=== PATIENT | female | born 1990 | race Caucasian/White ===

== ENCOUNTER 2018-05-28 05:49 | Inpatient (IN) | payer OTHER ==
[~2018-05-28] VITALS: Ht 165.1 cm; Wt 84.0 kg
[2018-05-28] MEDS ORDERED: METOCLOPRAMIDE HCL 5 MG/ML 2 ML VIAL IVP ONE (06:00)
[2018-05-28] MEDS ORDERED: CITRIC ACID/SODIUM CITRATE 30 ML SOLUTION UDCUP PO ONE (06:00)
[2018-05-28] MEDS ORDERED: PREN1TAB80 PO (06:01)
[2018-05-28] MEDS ORDERED: METHY250 PO (06:01)
[2018-05-28 06:32] LABS: BASOPHILS % (AUTO) 0.3 % (0.0-2.0); HEMATOCRIT 37.7 % (36-46); HEMOGLOBIN 12.9 g/dL (12.0-16.0); LYMPHOCYTES # (AUTO) 1.5 K/uL (1.0-4.8); LYMPHOCYTES % (AUTO) 18.3 % (22.0-44.0); MEAN CORPUSCULAR HGB CONC 34.3 G/dL (31.0-37.0); MEAN CORPUSCULAR VOLUME 90 fL (80-100); MONOCYTES # (AUTO) 0.6 K/uL (0.1-1.0); MONOCYTES % (AUTO) 7.6 % (2.0-9.0); NEUTROPHILS # (AUTO) 5.9 K/uL (1.8-7.7); NEUTROPHILS % (AUTO) 72.8 % (40.0-70.0); PLATELET COUNT (AUTO)-OB 231 K/uL (150-450); RED BLOOD CELL COUNT(AUTO) 4.18 MIL/uL (4.00-5.20); RED CELL DISTRIBUTION WIDTH 14.3 % (11.5-14.5)
[2018-05-28] MEDS: RINGERS SOLUTION,LACTATED 1,000 ML IV SCH ×2 (06:43→07:19)
[2018-05-28 06:44] VITALS: BP 127/81
[2018-05-28] MEDS ORDERED: BUPIVACAINE HCL/DEX-WATER/PF 0.75% 2 ML AMP ONE (07:29)
[2018-05-28] MEDS ORDERED: ACETAMINOPHEN 1000 MG/ISO-OSM 100 ML IV ONE ×2 (08:25→14:30)
[2018-05-28] MEDS ORDERED: OxyCODONE HCL/ACETAMINOPHEN 10-325 MG TABLET PO PRN (08:45)
[2018-05-28] MEDS ORDERED: MEPERIDINE-PF 25 MG/ML VIAL IVP PRN (08:45)
[2018-05-28] MEDS ORDERED: FentaNYL CITRATE-PF 100 MCG/2 ML VIAL IVP PRN ×2 (08:45)
[2018-05-28] MEDS ORDERED: NALOXONE HCL 0.4 MG/ML VIAL IVP PRN (08:45)
[2018-05-28] MEDS ORDERED: HYDROmorphone 2 MG/ML SYRINGE IVP PRN ×2 (08:45)
[2018-05-28] MEDS ORDERED: DiphenhydrAMINE HCL 50 MG/ML VIAL IVP PRN (08:45)
[2018-05-28] MEDS ORDERED: RINGERS SOLUTION,LACTATED 1,000 ML IV ONE (08:46)
[2018-05-28] MEDS ORDERED: LANOLIN 7 GM OINTMENT TP PRN (09:00)
[2018-05-28] MEDS ORDERED: ACETAMINOPHEN/CODEINE 300-30 MG TABLET PO PRN (09:00)
[2018-05-28] MEDS ORDERED: ONDANSETRON HCL 4 MG/2 ML VIAL ONE (09:39)
[2018-05-28] MEDS: ONDANSETRON HCL 4 MG/2 ML VIAL IVP PRN ×2 (09:42→17:07)
[2018-05-28] MEDS ORDERED: ONDANSETRON HCL 4 MG/2 ML VIAL IVP ONE ×2 (13:00→14:00)
[2018-05-28] MEDS: DEXTROSE 5%-0.45% SODIUM CHL 1,000 ML IV SCH ×2 (14:46→21:12)
[2018-05-28 17:59] VITALS: BP 126/65
[2018-05-28] MEDS: ACETAMINOPHEN 500 MG TABLET PO SCH (23:19)
[2018-05-29] MEDS: DEXTROSE 5%-0.45% SODIUM CHL 1,000 ML IV SCH ×2 (00:50→04:44)
[2018-05-29] MEDS: IBUPROFEN 800 MG TABLET PO SCH ×4 (01:34→20:40)
[2018-05-29] MEDS: ACETAMINOPHEN 500 MG TABLET PO SCH ×2 (04:40→11:25)
[2018-05-29] MEDS ORDERED: EPHEDrine SULFATE 50 MG/ML VIAL IM ONE (05:45)
[2018-05-29] MEDS ORDERED: ONDANSETRON HCL 4 MG/2 ML VIAL IVP ONE (05:45)
[2018-05-29] MEDS ORDERED: FentaNYL CITRATE-PF 100 MCG/2 ML VIAL IVP ONE (05:45)
[2018-05-29] MEDS ORDERED: 0.9% SODIUM CHLORIDE 10 ML VIAL IVP ONE (05:45)
[2018-05-29] MEDS ORDERED: MORPHINE SULFATE/PF 0.5 MG/ML 10 ML AMP IVP ONE (05:45)
[2018-05-29] MEDS: MAGNESIUM HYDROXIDE SUSPENSION 30 ML UDCUP PO SCH ×3 (11:25→20:39)
[2018-05-29] MEDS: ACETAMINOPHEN/CODEINE 300-30 MG TABLET PO PRN (20:47)
[2018-05-30] MEDS: ACETAMINOPHEN/CODEINE 300-30 MG TABLET PO PRN ×2 (01:53→18:49)
[2018-05-30] MEDS: IBUPROFEN 800 MG TABLET PO SCH ×4 (01:54→20:20)
[2018-05-30] MEDS: MAGNESIUM HYDROXIDE SUSPENSION 30 ML UDCUP PO SCH ×2 (09:34→21:00)
[2018-05-31] MEDS: IBUPROFEN 800 MG TABLET PO SCH ×2 (02:00→10:45)
[2018-05-31] MEDS ORDERED: IBUP-2071 PO ×2 (07:30→10:06)
== END 2018-05-31 11:00 | disposition home or self-care (01) | DRG 788 ==
LOC: 4S 05:49
PROVIDERS: ADMIT Obstetrics & Gynecology; ATTEND Obstetrics & Gynecology
PROC: 10D00Z1 Extraction of Products of Conception, Low, Open Approach (ICD-10-PCS; principal; 2018-05-28)
DX: O77.0 Labor and delivery complicated by meconium in amniotic fluid (principal); O32.1XX0 Maternal care for breech presentation, not applicable or unspecified; Z3A.39 39 weeks gestation of pregnancy; Z37.0 Single live birth
CPT/HCPCS: 85461; 86850; 86870; 86900; 86901; 87081; J0131; J0690; J2274; J2405; J2765; J3010; J3490; J7120